=== PATIENT | male | born 2000 | race African-American/Black ===

== ENCOUNTER 2023-12-07 18:40 | Emergency (ER) | payer OTHER ==
[~2023-12-07] VITALS: Ht 175.3 cm; Wt 94.3 kg
[2023-12-07] MEDS ORDERED: LIDO15SO8 PO (20:24)
[2023-12-07] MEDS ORDERED: AMOX500C PO (20:24)
[2023-12-07] MEDS: AMOXICILLIN 500 MG CAP PO ONE (20:41)
[2023-12-07 20:42] VITALS: BP 133/92; TEMP 99.6; O2SAT 100
[2023-12-07 22:10] LABS: GC DNA AMPLIFICATION NEGATIVE (NEGATIVE)
== END 2023-12-07 20:43 | disposition home or self-care (01) ==
LOC: M ED 18:40
DX: J02.0 Streptococcal pharyngitis (principal); Z79.2 Long term (current) use of antibiotics; Z79.899 Other long term (current) drug therapy